=== PATIENT | male | born 1965 | race Caucasian/White ===

== ENCOUNTER 2024-05-18 11:24 | Emergency (ER) | payer MEDICARE, OTHER, SELFPAY ==
--- NOTE | 2024-05-18 11:37 | ED.GENMED ---
ED Provider Triage
<Danyell Phillip PA-C - Last Filed: 05/18/24 11:40>
-
Patient seen by provider in Triage?: Seen in Triage
58 y/o M
h/o calderon syndrome
chronic abd pain on opiates
well known to ED
abd pain and belching for several days
A medical screening examination has been initiated by a qualified medical provider. Based on the assessment performed at this time, it has been determined that an emergent medical condition may exist and the patient has been informed that further
medical evaluation and possible additional diagnostic testing may be needed.
HPI: This is a medical evaluation conducted in person to initiate diagnostic evaluation and provide initial therapeutics. Please see further documentation by the treating clinician.
GENERAL: Alert , in no apparent distress
ENT: No visible abnormalities
LUNGS: No acute respiratory distress
NEUROLOGICAL: Alert and oriented
SKIN: Skin intact. No visible changes.
MUSCULOSKELETAL: Moving extremities normally
PSYCH: Normal and appropriate interaction.
Screening labs initiated. Will defer imaging, patient has had many images in the past.
History of Present Illness
<Danyell Phillip PA-C - Last Filed: 05/18/24 11:40>
General
Chief Complaint: Abdominal Symptoms
Time Seen by Provider: 05/18/24 12:16
<Heather Novoa PA-C - Last Filed: 05/18/24 19:03>
General
Source: patient
History of Present Illness
History of Present Illness:
58yoM with a history of Calderon syndrome, multiple prior abdominal surgeries, cirrhosis, and chronic abdominal pain on opioids presenting for evaluation of abdominal pain. He has chronic pain for which he is maintained on oxycodone 30mg. Pain has been
worse over the past 3 days. He reports generalized abdominal discomfort and bloating. He is also having nausea and belching. Last bowel movement was yesterday and he has not passed any flatus today. He is worried that he has a bowel obstruction as
he has a history of this.
Past History
<Danyell Phillip PA-C - Last Filed: 05/18/24 11:40>
Past History
ED Past Medical History: Cancer (Colorectal cancer/Calderon syndrome, bladder cancer) and Other (Chronic abdominal pain/narcotic dependent, Calderon syndrome)
ED Past Surgical History: Bowel resection, Cholecystectomy, Orthopedic and Urological (Partial kidney removal)
Social History
Tobacco: Former smoker
Alcohol: Former
Drug: Marijuana
Personal: Single
Living: alone
Employment: Not employed
Family History
Family History: Cancer (Colorectal cancer/Calderon syndrome)
Phy Exam
<Heather Novoa PA-C - Last Filed: 05/18/24 19:03>
General Physical Exam
General Presentation: well appearing and no apparent distress
General age: appears stated age
General Skin: warm and dry
General Habitus: normal
General Mental: alert
ENT Exam
ENT Exam: normocephalic
Pulmonary Exam
Pulmonary Exam: no respiratory distress
Gastrointestinal Exam
Gastrointestinal Exam: soft, non distended, surgical scar and other (Multiple surgical scars noted. +Tenderness in upper abdomen. No obvious distention. No rebound or guarding.)
Neurological Exam
Neurological Exam: alert
[place] Coma Scale
Eye Opening: Spontaneous
Verbal Response: Oriented
Motor Response: Obeys Commands
GCS Total Score: 15
Skin Exam
Skin Exam: normal color and warm/dry
Psychiatric Exam
Psychiatric Exam: normal mood/affect
Course
<Danyell Phillip PA-C - Last Filed: 05/18/24 11:40>
Orders/Labs/Results
Orders:
Orders
05/18/24 11:48
Complete Blood Count/With Diff Urgent
Comprehensive Metabolic Panel Urgent
Lipase Urgent
05/18/24 12:23
0.9% Sodium Chloride 500 ml [Nss] 500 ml IV BOLUS
HYDROmorphone [Dilaudid] 1 mg IV NOW STA
Iohexol [Omnipaque] See Protocol PO NOW STA
Ondansetron Injectable [Zofran] 4 mg IV NOW STA
05/18/24 14:39
Iohexol [Omnipaque] See Protocol PO NOW STA
Abnormal Lab Results
05/18/24
11:48
WBC 3.1 L 10^3/uL
(4.8-10.8)
RBC 3.97 L 10^6/uL
(4.70-6.10)
Hgb 12.1 L g/dL
(13.0-18.0)
Hct 36.1 L %
(39.0-52.0)
RDW 15.3 H %
(11.5-14.5)
Plt Count 59 L 10^3/uL
(130-400)
MPV 12.3 H fL
(7.4-10.4)
Absolute Lymphs (auto) 0.6 L 10^3/uL
(1.2-3.4)
Lymphocytes % 18.1 L %
(20.5-51.1)
Chloride 108 H mmol/L
(98-107)
Creatinine 1.4 H mg/dL
(0.7-1.3)
Glucose 102 H mg/dl
(70-99)
Alkaline Phosphatase 139 H U/L
(38-126)
05/18/24 11:48
05/18/24 11:48
Vital Signs
Initial and Last Documented VS:
Initial Vital Signs
Temp Pulse Resp BP Pulse Ox
100.3 F 72 16 137/99 98
05/18/24 11:38 05/18/24 11:38 05/18/24 11:38 05/18/24 11:38 05/18/24 11:38
Last Documented Vital Signs
Temp Pulse Resp BP Pulse Ox
100.3 F 72 16 137/99 98
05/18/24 11:38 05/18/24 11:38 05/18/24 12:57 05/18/24 11:38 05/18/24 11:38
<Heather Novoa PA-C - Last Filed: 05/18/24 19:03>
Orders/Labs/Results
Orders:
Orders
05/18/24 11:48
Complete Blood Count/With Diff Urgent
Comprehensive Metabolic Panel Urgent
Lipase Urgent
05/18/24 12:23
0.9% Sodium Chloride 500 ml [Nss] 500 ml IV BOLUS
HYDROmorphone [Dilaudid] 1 mg IV NOW STA
Iohexol [Omnipaque] See Protocol PO NOW STA
Ondansetron Injectable [Zofran] 4 mg IV NOW STA
05/18/24 14:39
Iohexol [Omnipaque] See Protocol PO NOW STA
Abnormal Lab Results
05/18/24
11:48
WBC 3.1 L 10^3/uL
(4.8-10.8)
RBC 3.97 L 10^6/uL
(4.70-6.10)
Hgb 12.1 L g/dL
(13.0-18.0)
Hct 36.1 L %
(39.0-52.0)
RDW 15.3 H %
(11.5-14.5)
Plt Count 59 L 10^3/uL
(130-400)
MPV 12.3 H fL
(7.4-10.4)
Absolute Lymphs (auto) 0.6 L 10^3/uL
(1.2-3.4)
Lymphocytes % 18.1 L %
(20.5-51.1)
Chloride 108 H mmol/L
(98-107)
Creatinine 1.4 H mg/dL
(0.7-1.3)
Glucose 102 H mg/dl
(70-99)
Alkaline Phosphatase 139 H U/L
(38-126)
05/18/24 11:48
05/18/24 11:48
Vital Signs
Initial and Last Documented VS:
Initial Vital Signs
Temp Pulse Resp BP Pulse Ox
100.3 F 72 16 137/99 98
05/18/24 11:38 05/18/24 11:38 05/18/24 11:38 05/18/24 11:38 05/18/24 11:38
Last Documented Vital Signs
Temp Pulse Resp BP Pulse Ox
100.3 F 72 16 137/99 98
05/18/24 11:38 05/18/24 11:38 05/18/24 12:57 05/18/24 11:38 05/18/24 11:38
<Heather Novoa PA-C - Last Filed: 05/18/24 19:03>
MDM/Problems Addressed
Differential Diagnosis Includes:
58yoM here with abd pain and belching. Hx of Calderon syndrome with multiple prior abd surgeries. Hx of chronic abd pain on opioids. Temp 100.3 on arrival. Remainder of vitals stable. He is non-toxic appearing and ambulating around ED. Multiple
surgical scars noted on exam. No signs of peritonitis noted. Differential diagnosis includes but is not limited to: SBO, pancreatitis, chronic abdominal pain
Initial ED plan: Abdominal labs obtained in triage. Platelets 59 which is baseline. Creatinine 1.4 which is slightly above baseline of 1.2-1.3. CT abdomen ordered. IV Dilaudid, Zofran, and fluid bolus ordered for pain.
<Heather Novoa PA-C - Last Filed: 05/18/24 19:03>
*Critical Care Note
Total Time (30-74mins, 75-104mins- exclusive of procedures): Not Applicable
<Heather Novoa PA-C - Last Filed: 05/18/24 19:03>
Update Note
Update Note:
Informed by nursing staff that patient repeatedly asking for additional pain medication. Chart reviewed and patient has a documented history of drug seeking behavior. I went to reassess patient and told him that we will hold further narcotics
pending the CT scan. Patient now wants to leave without the CT scan. Discussed with patient that his PO contrast prep time is finished in 15 minutes. Despite this, he does not want to wait for CT scan. He states he is miserable and 'just wants to go
home, take a shower, take any oxycodone, and smoke a joint.' He understands that he is leaving AMA and we cannot r/o SBO or other emergent causes of abdominal pain without imaging. Patient left in stable condition.
ED Attending Note
<Danyell Phillip PA-C - Last Filed: 05/18/24 11:40>
-
Portions of this chart may have been created with voice recognition software.� Occasional wrong word or��sound alike� substitutions may have occurred due to the inherent limitations of voice recognition software.
Discharge Plan
Departure
Patient Disposition: Against Medical Advice
Date of Disposition: 05/18/24
Time of Disposition: 14:46
Discharge Problem:
Abdominal pain
Instructions: Abdominal Pain
Prescriptions:
No Action
gabapentin 800 mg Tablet
800 mg PO TID
ondansetron 8 mg Tablet,Disintegrating
8 mg PO TIDPRN PRN (Reason: severe nausea)
oxycodone 30 mg Tablet
30 mg PO 6XD
Rx Instructions:
02/17/23 filled on 01/29/23 #30, prescription only written for 30mg q6hprn
Medical Marijuana
1 - 2 puff inhalation R Q4HPRN PRN (Reason: severe pain)
Patient Comments:
02/17/2023, patient takes many puffs of flower
losartan-hydrochlorothiazide 100-12.5 mg Tablet
1 tab PO DAILY
metronidazole 500 mg tablet
500 mg PO Q12H 10 Days Qty: 30 0RF
Referrals:
UNKNOWN - PT DOES,NOT KNOW [Family Provider] -
Activity Restrictions/Additional Instructions:
You are leaving against medical advice. We have not performed a CT scan and we are unable to rule out a bowel obstruction or other emergent causes of your abdominal pain.
Please follow-up with your family doctor SACHIN. Return to the ER immediately with any new or worsening symptoms.
Interventions
Interventions:
*Risk Screen - Suicide Last Done: 05/18/24 11:38
*Neglect/Abuse Screening Last Done: 05/18/24 11:38
ED- Fall Risk Assessment Last Done: 05/18/24 12:55
*Nursing Disposition Last Done: 05/18/24 15:00
SH-Vmjmnx-Yzrhmnjatu Assessment Last Done: 05/18/24 12:55
Discharge Date and Time
Discharge Date/Time: 05/18/24 15:00
Print Language: YI
[2024-05-18 11:38] VITALS: BP 137/99
[2024-05-18 12:07] LABS: % Basophils 1.3 % (0-2); % Eosinophils 4.8 % (0-6); % Immature Granulocytes 0.3 % (0-0.5); % Lymphocytes 18.1 % (20.5-51.1); % Monocytes 8.1 % (1.7-9.3); % Neutrophils 67.4 % (42.2-75.2); Absolute Eosinophils 0.2 10^3/uL (0-0.7); Absolute Lymphocytes 0.6 10^3/uL (1.2-3.4); Absolute Monocytes 0.3 10^3/uL (0.1-0.6); Absolute Neutrophils 2.1 10^3/uL (1.4-6.5); Hematocrit 36.1 % (39.0-52.0); Hemoglobin 12.1 g/dL (13.0-18.0); Mean Corp Hgb Conc. 33.5 g/dL (33.0-37.0); Mean Corpuscular Hgb 30.5 pg (27.0-31.0); Mean Corpuscular Volume 90.9 fL (80.0-94.0); Mean Platelet Volume 12.3 fL (7.4-10.4); Nucleated Red Blood Cells % 0 % (-); Platelet Count 59 10^3/uL (130-400); Red Blood Cell Count 3.97 10^6/uL (4.70-6.10); Red Cell Dist. Width 15.3 % (11.5-14.5); White Blood Cell Count 3.1 10^3/uL (4.8-10.8)
[2024-05-18 12:37] LABS: Alkaline Phosphatase 139 U/L (38-126); Blood Urea Nitrogen 13 mg/dl (9-20); Calcium 9.2 mg/dl (8.4-10.2); Carbon Dioxide 26 mmol/L (22-30); Chloride 108 mmol/L (98-107); Glucose 102 mg/dl (70-99); Potassium 4.2 mmol/L (3.5-5.1); Sodium 142 mmol/L (135-145); Total Protein 6.7 g/dl (6.3-8.2)
[2024-05-18 12:38] LABS: ALT (SGPT) 30 U/L (0-50); AST (SGOT) 30 U/L (17-59); Albumin 3.9 g/dl (3.5-5.0); Lipase 58 U/L (23-300); Total Bilirubin 1.3 mg/dl (0.2-1.3)
[2024-05-18] MEDS: OMNIPAQUE 50 ML PO (12:48)
[2024-05-18] MEDS: NSS 500 IV (12:48)
[2024-05-18] MEDS: ZOFRAN 4 MG IV (12:48)
[2024-05-18] MEDS: DILAUDID 1 MG IV (12:49)
--- NOTE | 2024-05-18 14:59 | EDRN ---
Pt states he wants to leave so he can go 'take a shower, take an oxy and go smoke a joint'. IV taken out, pt refused vital signs. Heather LEW at bedside.
== END 2024-05-18 15:00 | disposition left against medical advice (07) ==
LOC: EMR 11:24
PROVIDERS: EMERGENCY PHYSICIAN Emergency Medicine
DX: R10.84 Generalized abdominal pain (principal); G89.29 Other chronic pain; R11.0 Nausea; K74.60 Unspecified cirrhosis of liver; Z85.048 Personal history of other malignant neoplasm of rectum, rectosigmoid junction, and anus; Z85.51 Personal history of malignant neoplasm of bladder; Z87.891 Personal history of nicotine dependence; Z90.49 Acquired absence of other specified parts of digestive tract; Z79.891 Long term (current) use of opiate analgesic; Z53.29 Procedure and treatment not carried out because of patient's decision for other reasons
CPT/HCPCS: 96374; 96375; 96361; 99284; 80053; 83690; 85025

== ENCOUNTER 2024-06-07 05:18 | Emergency (ER) | payer MEDICARE, OTHER, SELFPAY ==
[2024-06-07 05:34] VITALS: BP 220/138
[2024-06-07 08:25] VITALS: BP 122/87
--- NOTE | 2024-06-07 08:28 | ED.GENMED ---
History of Present Illness
<Juan C Martin DO, Resident - Last Filed: 06/07/24 11:34>
General
Chief Complaint: Abdominal Pain
Source: patient and records
Time Seen by Provider: 06/07/24 07:57
History of Present Illness
History of Present Illness:
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
for abdominal pain of 2 days in duration. Patient reports his abdominal pain is progressive and diffuse in character. Patient reports he is becoming more and more distended, reports abdomen is tense at this point. Abdominal pain is associated
with nausea and vomiting, patient reports episodes of vomiting, now just retching. Patient is also endorsing bloody diarrhea, 1 episode�patient has bloody diarrhea normally. Patient reports he get colonoscopy every 6 months, last colonoscopy was
approximately 3 months ago. On presentation to the ED patient's blood pressure was elevated to 220/138, recheck was 122/70. Of note, there was some concern in the chart regarding potential pain seeking behavior, apparently patient has become
aggressive in the past regarding pain meds and will frequently visit hospitals regarding this. Previous visit notes were reviewed, it is noted that patient previously left AMA after hospital admission and had refused multiple CT scans previously.
Per note patient has had approximately 13 CT scans in the last year. Patient is extremely tearful in room, stating that he is over this his entire situation, he denies suicidal ideations, has no thoughts of hurting others. Subjectively patient
reports he is depressed and 'overall this shit'. Of note patient has multiple previous hospital visits where he was considered to be drug-seeking, previously it was explained to him that we would not be providing parenteral opiates without evidence
of acute disease on CT scan.
Past History
<Juan C Martin DO, Resident - Last Filed: 06/07/24 11:34>
Past History
ED Past Medical History: Cancer (Colorectal cancer/Manzano syndrome, bladder cancer) and Other (Chronic abdominal pain/narcotic dependent, Manzano syndrome)
ED Past Surgical History: Bowel resection, Cholecystectomy, Orthopedic and Urological (Partial kidney removal)
Social History
Tobacco: Former smoker
Alcohol: Former
Drug: Marijuana
Personal: Single
Living: alone
Employment: Not employed
Family History
Family History: Cancer (Colorectal cancer/Manzano syndrome)
Review of Systems
<Juan C Martin DO, Resident - Last Filed: 06/07/24 11:34>
Review of Systems
Constitutional: Denies fever or fatigue
Respiratory: Reports no symptoms
Cardiac: Reports no symptoms
ABD/GI: Reports abdominal pain, nausea, vomiting, diarrhea (Bloody diarrhea-reports normal for him) and bloody stools
: Reports no symptoms
Musculoskeletal: Reports no symptoms
Neurological: Reports no symptoms
Psychiatric: Reports depression (Subjectively reports extremely depressed), anxiety and other (Denies suicidal ideations, no thoughts of harming others)
Phy Exam
<Juan C Martin DO, Resident - Last Filed: 06/07/24 11:34>
General Physical Exam
General Presentation: moderate distress
General Skin: warm and dry
General Mental: tearful
Cardiovascular Exam
Cardiovascular Exam: regular rate/rhythm, no edema and no murmur
Pulmonary Exam
Pulmonary Exam: lungs clear, no respiratory distress, no crackles and no wheezing
Gastrointestinal Exam
Gastrointestinal Exam: distended, surgical scar (Multiple surgical scars present throughout abdomen), tender and other (Abdomen diffusely tender to palpation in all quadrants, but deep and light.. No rebound present, some component of guard)
Psychiatric Exam
Psychiatric Exam: other (Tearful)
Course
<Juan C Martin DO, Resident - Last Filed: 06/07/24 11:34>
Orders/Labs/Results
Orders:
Orders
06/07/24 08:07
Complete Blood Count/With Diff Urgent
Comprehensive Metabolic Panel Urgent
06/07/24 08:12
Lactic Acid Urgent
06/07/24 08:14
HYDROmorphone [Dilaudid] 1 mg IV NOW STA
Ondansetron Injectable [Zofran] 4 mg IV NOW STA
06/07/24 08:20
0.9% Sodium Chloride 1000 ml [Nss] 1,000 ml IV BOLUS
CR Obstruct Series W/pa Chest Stat
Comment:
Reason For Exam: Abdominal distention/diffuse tenderness
06/07/24 08:36
HYDROmorphone [Dilaudid] 1 mg .ROUTE .STK-MED ONE
Abnormal Lab Results
06/07/24
08:07
WBC 2.6 L 10^3/uL
(4.8-10.8)
RBC 3.70 L 10^6/uL
(4.70-6.10)
Hgb 11.3 L g/dL
(13.0-18.0)
Hct 33.0 L %
(39.0-52.0)
RDW 15.5 H %
(11.5-14.5)
Plt Count 52 L 10^3/uL
(130-400)
MPV 11.7 H fL
(7.4-10.4)
Absolute Lymphs (auto) 0.4 L 10^3/uL
(1.2-3.4)
Lymphocytes % 16.0 L %
(20.5-51.1)
Monocytes % 9.4 H %
(1.7-9.3)
Glucose 107 H mg/dl
(70-99)
Alkaline Phosphatase 139 H U/L
(38-126)
06/07/24 08:07
06/07/24 08:07
Vital Signs
Initial and Last Documented VS:
Initial Vital Signs
Temp Pulse Resp BP Pulse Ox
98.6 F 86 24 220/138 98
06/07/24 05:34 06/07/24 05:34 06/07/24 05:34 06/07/24 05:34 06/07/24 05:34
Last Documented Vital Signs
Temp Pulse Resp BP Pulse Ox
99.0 F 69 16 151/84 99
06/07/24 08:25 06/07/24 09:13 06/07/24 09:13 06/07/24 09:13 06/07/24 09:13
<Lisa Almazan MD - Last Filed: 06/07/24 14:55>
Orders/Labs/Results
Orders:
Orders
06/07/24 08:07
Complete Blood Count/With Diff Urgent
Comprehensive Metabolic Panel Urgent
06/07/24 08:12
Lactic Acid Urgent
06/07/24 08:14
HYDROmorphone [Dilaudid] 1 mg IV NOW STA
Ondansetron Injectable [Zofran] 4 mg IV NOW STA
06/07/24 08:20
0.9% Sodium Chloride 1000 ml [Nss] 1,000 ml IV BOLUS
CR Obstruct Series W/pa Chest Stat
Comment:
Reason For Exam: Abdominal distention/diffuse tenderness
06/07/24 08:36
HYDROmorphone [Dilaudid] 1 mg .ROUTE .STK-MED ONE
Abnormal Lab Results
06/07/24
08:07
WBC 2.6 L 10^3/uL
(4.8-10.8)
RBC 3.70 L 10^6/uL
(4.70-6.10)
Hgb 11.3 L g/dL
(13.0-18.0)
Hct 33.0 L %
(39.0-52.0)
RDW 15.5 H %
(11.5-14.5)
Plt Count 52 L 10^3/uL
(130-400)
MPV 11.7 H fL
(7.4-10.4)
Absolute Lymphs (auto) 0.4 L 10^3/uL
(1.2-3.4)
Lymphocytes % 16.0 L %
(20.5-51.1)
Monocytes % 9.4 H %
(1.7-9.3)
Glucose 107 H mg/dl
(70-99)
Alkaline Phosphatase 139 H U/L
(38-126)
06/07/24 08:07
06/07/24 08:07
Vital Signs
Initial and Last Documented VS:
Initial Vital Signs
Temp Pulse Resp BP Pulse Ox
98.6 F 86 24 220/138 98
06/07/24 05:34 06/07/24 05:34 06/07/24 05:34 06/07/24 05:34 06/07/24 05:34
Last Documented Vital Signs
Temp Pulse Resp BP Pulse Ox
99.0 F 69 16 151/84 99
06/07/24 08:25 06/07/24 09:13 06/07/24 09:13 06/07/24 09:13 06/07/24 09:13
<Juan C Martin DO, Resident - Last Filed: 06/07/24 11:34>
MDM/Problems Addressed
Differential Diagnosis Includes:
Acute on chronic abdominal pain, partial small bowel obstruction, malignancy,
MDM/Problems Addressed:
58 male past medical history of Manzano syndrome with multiple malignancies, kidney cancer status post nephrectomy, rectal cancer status post resection chemoradiation, bladder cancer x 2 multiple abdominal surgeries presents for acute on chronic
abdominal pain. Patient is extremely tearful on exam, stating he is very upset with his situation and long interiano with Manzano syndrome/cancer
Patient reports diffuse abdominal pain which is slowly progressive in character for the last 2 days, reports having an episode of bloody diarrhea, as well as episodes of nausea with vomiting. Patient notes bloody diarrhea is normal for him
Constellation of symptoms is suspicious for small bowel obstruction. Abdomen diffusely tender on exam, no rebound, no guarding. Abdomen tense. Multiple surgical scars present throughout abdomen
Blood pressure elevated 220/138 on admission, recheck 134/92. Patient reports not taking his blood pressure medications today. Patient reports no symptoms of hypertension, no dizziness, no changes in vision, no headache
Order abdominal obstruction series radiograph
Ordered CT abdomen pelvis with IV and oral contrast-Per radiology records patient has had over 13 CAT scans in the previous year throughout different institutions, patient was very adamant about avoiding CT scans of his abdomen, initially was
agreeable however eventually he refused
IV fluid bolus, IV Zofran, pain management
Of note patient is known to the emergency department as he has multiple prior visits where he was seeking parenteral narcotics for acute on chronic abdominal pain. There were times documented in the past where patient left AMA and refused care due
to not receiving the pain medications he requested
Unfortunately, I was not aware of this before seeing the patient, I did prescribe 1 mg IV Dilaudid as I did truly believe the patient to be in pain, after receiving Dilaudid patient is much more comfortable and happy
Will hold off on any additional parenteral narcotics until after CT scan has been completed�per hospital protocol.
Patient was adamant about refusing CT imaging of the abdomen, we explained to him that he would be leaving AGAINST MEDICAL ADVICE as we had not completed his workup, patient reported that he understood the risks involved leaving AGAINST MEDICAL
ADVICE.
Patient admitted to me in plain language that he has to come to the hospital 'for IV pain meds as he cannot get them anywhere else'. Reexamination of abdomen was improved compared to previous, still no rebound or guarding
Abdominal series radiograph demonstrated no free air, no air-fluid levels
Discharge patient AGAINST MEDICAL ADVICE. During his time here patient received 1 mg IV Dilaudid. Patient reports he does have a ride home, reports that his ride is here to pick him up and he will not drive as he did receive IV Dilaudid.
Patient's ride was not able to be found in the hospital. Eventually patient admitted that he lied about having a ride and wanted to drive himself. Informed patient he was not able to leave until person giving him a ride was present in the
emergency department as if he were to drive he would be be driving under the influence, he did receive IV Dilaudid and we informed the patient he cannot drive until cleared per hospital policy. Patient was very upset about this and threatened to
walk out, we informed him we would unfortunately have to call the police as he would be driving under the influence of narcotics. Security was called, spoke to patient and we will make sure he does not leave and drive himself. If he does we will
unfortunately have to call the police and report DUI.
Patient did wait for approximately 2 and half hours after he received his IV Dilaudid until he left, per hospital policy 'if patient has no motor transportation and alternate services are not available, they will be required to remain in the
emergency department for a minimum of 2 hours from the time of the medication administration, be physiologically stable and fully recovered from the medication.' Patient stayed for greater than 2 hours and he was physiologically stable, able to
walk on his own. Patient is not not opiate na�ve and clinically he appears competent to drive. Still encourage patient to get his own ride and not drive as duration of Dilaudid is approximately 3 to 4 hours. Patient was adamant about driving
himself, expressed understanding of risks of driving under the influence of narcotics. It was explained to him, and patient expressed understanding, that emergency department is not the place to receive pain medications. Palliative care referral
was provided on discharge, patient encouraged to call and make an appointment. Patient also encouraged to follow-up with established pain management doctors.
<Juan C Martin DO, Resident - Last Filed: 06/07/24 11:34>
*Critical Care Note
Total Time (30-74mins, 75-104mins- exclusive of procedures): Not Applicable
ED Attending Note
<Juan C Martin DO, Resident - Last Filed: 06/07/24 11:34>
-
Portions of this chart may have been created with voice recognition software.� Occasional wrong word or��sound alike� substitutions may have occurred due to the inherent limitations of voice recognition software.
<Lisa Almazan MD - Last Filed: 06/07/24 14:55>
ED Attending Note
Patient seen and examined by attending physician: Yes
I performed the substantive portion of visit, reviewed & personally made and approve the management plan that is documented in note by myself or NICOLE.: Yes
ED Attending Note:
58-year-old male presents emergency department complaints of abdominal pain, nausea, vomiting, diarrhea that started yesterday and continues. Patient well-known to our emergency department, has a strong medical history of abdominal illness and
presented tearful with complaints of 10 out of 10 pain. Status post administration of pain medication here, upon my meeting the patient, he is smiling, watching TV, in no distress. Abdomen is soft, diffusely tender nonspecific and distractible,
bowel sounds normal, no rebound or guarding. Heart regular rate and rhythm. Long discussion with patient regarding pain management here while we evaluate his medical needs. He is agreeable to an x-ray but not enhanced imaging at this time. We
will continue to treat his pain however with not opioids which he is aware of.
942 Am Unfortunately, pt was ordered and given narcotic pain medication given his concerning presentatino before I saw him...nonetheless, after this dose, he is now pain free and demanding to go home. Obviously we still have great concern
regarding his sxs, and he is aware that even though obs series nad, this does not exclude worrisome/serious/potentially lethal illness without further testing here. He expresses understanding of this and still declines. I told him that if he
changes his mind about this decision, he should come back.
Discharge Plan
Departure
Patient Disposition: Home (Routine Discharge)
Date of Disposition: 06/07/24
Time of Disposition: 09:44
Patient with high blood pressure during this ER visit?: Yes
Condition: Good
Discharge Problem:
Abdominal pain
Instructions: Abdominal Pain, BLOOD PRESSURE
Prescriptions:
No Action
gabapentin 800 mg Tablet
800 mg PO TID
ondansetron 8 mg Tablet,Disintegrating
8 mg PO TIDPRN PRN (Reason: severe nausea)
oxycodone 30 mg Tablet
30 mg PO 6XD
Rx Instructions:
02/17/23 filled on 01/29/23 #30, prescription only written for 30mg q6hprn
Medical Marijuana
1 - 2 puff inhalation R Q4HPRN PRN (Reason: severe pain)
Patient Comments:
02/17/2023, patient takes many puffs of flower
losartan-hydrochlorothiazide 100-12.5 mg Tablet
1 tab PO DAILY
metronidazole 500 mg tablet
500 mg PO Q12H 10 Days Qty: 30 0RF
Referrals:
Anuradha Velásquez MD [Active] - As needed
UNKNOWN - PT DOES,NOT KNOW [Family Provider] -
Activity Restrictions/Additional Instructions:
YOU ARE LEAVING THE HOSPITAL EVEN THOUGH YOUR EVALUATION IS NOT COMPLETE. YOU HAVE EXPRESSED UNDERSTANDING THAT THIS MEANS THAT YOU MAY HAVE A SERIOUS ILLNESS THAT COULD LEAD TO PERMANENT DISABILITY AND/OR . IF YOU CHANGE YOUR MIND ABOUT THIS
DECISION, PLEASE COME BACK SO THAT WE CAN TAKE CARE OF YOU.
BE AWARE THAT PER OUR POLICY, WE WILL ADDRESS YOUR PAIN, HOWEVER YOU WILL NOT RECEIVE NARCOTIC PAIN MEDICATION WITHOUT PROPER EVALUATION AND TESTING.
IF YOU DEVELOP RECURRENT PAIN, FEVER, VOMITING, CHEST PAIN, TROUBLE BREATHING, OR OTHER WORRISOME SIGNS, GO TO THE ER IMMEDIATELY!
Interventions
Interventions:
*Risk Screen - Suicide Last Done: 06/07/24 05:34
*General Assessment Last Done: 06/07/24 09:15
*Neglect/Abuse Screening Last Done: 06/07/24 05:34
ED- Fall Risk Assessment Last Done: 06/07/24 08:50
*ED COVID-19 Vaccine History Last Done: 06/07/24 09:15
*Nursing Disposition Last Done: 06/07/24 11:18
[facility] Assessment Last Done: 06/07/24 09:17
Discharge Date and Time
Discharge Date/Time: 06/07/24 11:19
Print Language: PASHTO
[2024-06-07 08:29] LABS: % Basophils 0.8 % (0-2); % Eosinophils 4.7 % (0-6); % Immature Granulocytes 0.4 % (0-0.5); % Monocytes 9.4 % (1.7-9.3); % Neutrophils 68.7 % (42.2-75.2); Absolute Eosinophils 0.1 10^3/uL (0-0.7); Absolute Lymphocytes 0.4 10^3/uL (1.2-3.4); Absolute Monocytes 0.2 10^3/uL (0.1-0.6); Absolute Neutrophils 1.8 10^3/uL (1.4-6.5); Hemoglobin 11.3 g/dL (13.0-18.0); Mean Corp Hgb Conc. 34.2 g/dL (33.0-37.0); Mean Corpuscular Hgb 30.5 pg (27.0-31.0); Mean Corpuscular Volume 89.2 fL (80.0-94.0); Mean Platelet Volume 11.7 fL (7.4-10.4); Nucleated Red Blood Cells % 0 % (-); Platelet Count 52 10^3/uL (130-400); Red Cell Dist. Width 15.5 % (11.5-14.5); White Blood Cell Count 2.6 10^3/uL (4.8-10.8)
[2024-06-07 08:40] LABS: ALT (SGPT) 23 U/L (0-50); AST (SGOT) 28 U/L (17-59); Albumin 3.7 g/dl (3.5-5.0); Alkaline Phosphatase 139 U/L (38-126); Blood Urea Nitrogen 13 mg/dl (9-20); Calcium 8.6 mg/dl (8.4-10.2); Carbon Dioxide 26 mmol/L (22-30); Chloride 105 mmol/L (98-107); Glucose 107 mg/dl (70-99); Potassium 4.1 mmol/L (3.5-5.1); Sodium 138 mmol/L (135-145); Total Bilirubin 0.9 mg/dl (0.2-1.3); Total Protein 6.6 g/dl (6.3-8.2); eGFR > 60.00
[2024-06-07] MEDS: NSS 1000 IV (08:40)
[2024-06-07] MEDS: DILAUDID 1 MG IV (08:41)
[2024-06-07] MEDS: ZOFRAN 4 MG IV (08:41)
[2024-06-07 08:49] LABS: Lactic Acid 0.8 mmol/L (0.7-2.0)
[2024-06-07 08:50] VITALS: BP 134/92; BMI 43.6
--- NOTE | 2024-06-07 08:55 | EDRN ---
This RN assumed care of this pt at this time.
[2024-06-07 09:13] VITALS: BP 151/84
--- NOTE | 2024-06-07 09:26 | EDRN ---
Pt is refusing CT scan and does not want to prep. Pt requested to speak to Dr. Martin who was TT'd and responded he will be down to speak w/ pt.
--- NOTE | 2024-06-07 09:39 | EDRN ---
Pt is asking for ED PCT to discontinue his IV as his ride is here and he wants to leave.
--- NOTE | 2024-06-07 09:40 | EDRN ---
Dr. Martin in room and informing pt that he needs the presence of a ride as he was medicated w/ dilaudid so ride needs to be seen by staff. Also that he is awaiting his paperwork and leaving against medical advice prior to a complete workup as this
would include the CT scan.
--- NOTE | 2024-06-07 09:43 | EDRN ---
Per Dr. Martin pt stated he only came in for nacotics.
--- NOTE | 2024-06-07 09:52 | EDRN ---
Pt does not have a ride so cannot leave. Pt has been informed that he cannot drive as he is still under influence of the narcotic medication. Pt has voiced his anger. IV is out and IVF only 50% infused.
--- NOTE | 2024-06-07 10:41 | EDRN ---
Pt is asking when he can drive home and response via TT is 2:30 PM.
--- NOTE | 2024-06-07 10:48 | EDRN ---
Pt just stated to me that he takes his oxys that he uses daily at home and drives, that he is not affected by the narcotics and therefore should be able to drive home. Lisa ED Director is looking into the policy. Pt is unable to get a ride.
--- NOTE | 2024-06-07 11:17 | EDRN ---
Pt able to leave as policy states can leave after 2 hours. Pt discharged to waiting room. Pt ambulating w/ out difficulty and speech is normal.
== END 2024-06-07 11:19 | disposition home or self-care (01) ==
LOC: EMR 05:18
PROVIDERS: EMERGENCY PHYSICIAN Emergency Medicine
DX: R10.9 Unspecified abdominal pain (principal); Z85.51 Personal history of malignant neoplasm of bladder; Z85.048 Personal history of other malignant neoplasm of rectum, rectosigmoid junction, and anus; G89.29 Other chronic pain; Z15.09 Genetic susceptibility to other malignant neoplasm; F11.20 Opioid dependence, uncomplicated; Z80.0 Family history of malignant neoplasm of digestive organs; Z85.528 Personal history of other malignant neoplasm of kidney; Z87.891 Personal history of nicotine dependence; Z90.49 Acquired absence of other specified parts of digestive tract; Z90.5 Acquired absence of kidney; Z91.148 Patient's other noncompliance with medication regimen for other reason; Z92.3 Personal history of irradiation
CPT/HCPCS: 99283; 96374; 96375; 96361; 74022; 80053; 83605; 85025